=== PATIENT | male | born 1990 | race Caucasian/White ===

== ENCOUNTER 2016-10-01 21:16 | Emergency (ER) | payer BC ==
[2016-10-01 18:38] LABS: WBC (NOT ORDERED) (RFLEX) 0 (0-5)
[2016-10-01 18:42] LABS: BASOPHILS 0.4 %; BASOPHILS ABSOLUTE 0.04 10/3/uL (0.0-0.16); EOSINOPHILS 2.6 %; EOSINOPHILS ABSOLUTE 0.26 10/3/uL (0.0-0.53); HEMATOCRIT 45.8 % (40.0-51.0); HEMOGLOBIN 15.1 g/dL (13.6-17.8); IMMATURE GRANULOCYTES 0.4 %; IMMATURE GRANULOCYTES ABSOLUTE 0.04 10/3/uL (0.0-0.11); LYMPHOCYTES 29.3 %; LYMPHOCYTES ABSOLUTE 2.98 10/3/uL (0.67-4.30); MEAN CORPUSCULAR HEMOGLOB 29.3 pg (26.0-34.0); MEAN CORPUSCULAR VOLUME 88.9 fL (80-100); MEAN PLATELET VOLUME 10.3 fL (9.2-13.0); MONOCYTES 9.9 %; MONOCYTES ABSOLUTE 1.01 10/3/uL (0.21-1.20); NEUTROPHILS 57.4 %; NEUTROPHILS ABSOLUTE 5.83 10/3/uL (2.02-8.40); PLATELET COUNT 247 10/3/uL (150-400); RED CELL COUNT 5.15 10/6/uL (4.7-6.1); WHITE BLOOD CELLS 10.2 10/3/uL (4.5-10.5)
[2016-10-01 18:43] LABS: MANUAL DIFF NO %
[2016-10-01 18:58] LABS: A/G RATIO 1.1 (0.7-1.9); ALBUMIN 3.8 G/DL (3.5-5.0); ALKALINE PHOSPHATASE 106 U/L (45-117); BUN (BLOOD UREA NITROGEN) 11 MG/DL (6-23); CALCIUM, SERUM 9.1 MG/DL (8.5-10.4); CHLORIDE, SERUM 106 MMOL/L (96-112); CO2 (CARBON DIOXIDE) 28 MMOL/L (24-34); CREATININE 1.17 MG/DL (0.70-1.30); GFR AFRICAN AMERICAN 98 ML/MIN (>=60); GFR NON AFRICAN AMERICAN 84 ML/MIN (>=60); GLOBULIN 3.6 G/DL (2.5-4.1); GLUCOSE, SERUM 96 MG/DL (60-99); POTASSIUM, SERUM 3.8 MMOL/L (3.5-5.3); SGOT(AST) 166 U/L (5-40); SGPT(ALT) 573 U/L (5-65); SODIUM, SERUM 139 MMOL/L (135-148); TOTAL BILIRUBIN 0.9 MG/DL (0-1.2); TOTAL PROTEIN 7.4 G/DL (6.0-8.5)
[2016-10-01 19:03] LABS: ASCORBIC ACID (UR NOT ORDER) NEG (NEG); BILIRUBIN, URINE NEGATIVE (NEG); ER URINALYSIS TAT 0 Hrs 27 Mins; KETONE, URINE NEGATIVE (NEG); LEUKOCYTE ESTERASE(NOT OR NEG (NEG); NITRITE (URINE) NEG (NEG)
[2016-10-01 21:07] LABS: DIRECT BILIRUBIN 0.2 MG/DL (0.0-0.4); INDIRECT BILIRUBIN(NOT ORDER) 0.7 MG/DL (0.1-0.9)
[2016-10-02 09:40] LABS: HEPATITIS B SURFACE ANTIGEN NON-REACTIVE (NON-REACT)
[2016-10-02 10:08] LABS: HEPATITIS B CORE AB IGM NON-REACTIVE (NON-REAC)
[2016-10-02 10:09] LABS: HEP A ANTIBODY IGM NON-REACTIVE (NON-REACT)
[2016-10-02 11:21] LABS: HEPATITIS C ANTIBODY REACTIVE (NON-REACT)
[2017-01-13] MEDS ORDERED: *DENIES (15:41)
== END 2016-10-01 22:52 | disposition home or self-care (01) ==
LOC: ER 21:16
PROVIDERS: Hospitalist; Nurse Practitioner
DX: R10.13 Epigastric pain (principal); R79.89 Other specified abnormal findings of blood chemistry; F10.10 Alcohol abuse, uncomplicated; F17.200 Nicotine dependence, unspecified, uncomplicated
CPT/HCPCS: 74176; 80053; 80074; 81001; 82248; 83690; 85025; 96374; 99284; A9270-GY; C9113